=== PATIENT | male | born 1935 | race Caucasian/White ===

== ENCOUNTER 2023-03-10 09:35 | Outpatient (CLI) | payer MEDICARE, BC | END 2023-03-10 09:36 | disposition home or self-care (01) | LOC: CSHRAD 09:35 | PROVIDERS: ATTEND Psychiatry & Neurology Neurology | DX: S99.922A Unspecified injury of left foot, initial encounter (principal) ==

== ENCOUNTER 2023-04-01 12:58 | Outpatient (CLI) | payer MEDICARE, BC | END 2023-04-01 12:59 | disposition home or self-care (01) | LOC: CSHRAD 12:58 | PROVIDERS: ATTEND Psychiatry & Neurology Neurology | DX: Z01.818 Encounter for other preprocedural examination (principal); J98.4 Other disorders of lung; Z95.0 Presence of cardiac pacemaker; I51.7 Cardiomegaly | CPT/HCPCS: 71045 ==

== ENCOUNTER 2023-04-03 09:46 | Outpatient (CLI) | payer MEDICARE, BC | END 2023-04-03 09:47 | disposition home or self-care (01) | LOC: CSHSPEC 09:46 | PROVIDERS: ATTEND Psychiatry & Neurology Neurology | DX: R41.3 Other amnesia (principal); I67.89 Other cerebrovascular disease; G31.9 Degenerative disease of nervous system, unspecified | CPT/HCPCS: 70551 ==